=== PATIENT | male | born 1990 | race Caucasian/White ===

== ENCOUNTER 2021-06-04 03:31 | Emergency (ER) | payer MEDICARE ==
[2021-06-04 03:48] VITALS: BP 161/100
[2021-06-04] MEDS ORDERED: HEPARIN 10,000 UNITS/10 ML VIAL IV PRN (03:49)
[2021-06-04 04:42] LABS: Hematocrit 29.6 % (35.5-45.6); Mean Corpuscular HGB Conc 34 % (32-34); Mean Corpuscular Volume 96 fl (84-94); Platelet Count 401 K/mm3 (140-440); Red Blood Count 3.08 M/mm3 (3.65-5.03); Red Cell Distribution Width 19.8 % (13.2-15.2)
[2021-06-04 04:58] LABS: Alanine Aminotransferase 6 units/L (7-56); Albumin 4.6 g/dL (3.9-5); Blood Urea Nitrogen 11 mg/dL (9-20); Hemolysis Index 67
[2021-06-04 05:02] LABS: BUN/Creatinine Ratio 16
--- NOTE | 2021-06-04 05:12 | XRay Report ---
CHEST 2 VIEWS INDICATION / CLINICAL INFORMATION: Dysrhythmia. COMPARISON: None available. FINDINGS: SUPPORT DEVICES: None. HEART / MEDIASTINUM: No significant abnormality. LUNGS / PLEURA: No significant pulmonary abnormality. No significant pleural effusion. No pneumothora x. ADDITIONAL FINDINGS: No significant additional findings. IMPRESSION: 1. No acute abnormality of the chest. Signer Name: Ollie Woo MD Signed: 06/04/2021 5:07 AM Workstation Name: [id number]
[2021-06-04 05:26] LABS: Total Cells Counted 200
[2021-06-04 05:27] LABS: Eosinophils % (Manual) 2.5 % (0.0-4.3); Nucleated Red Blood Cells 2.5 % (0.0-0.9)
[2021-06-04 05:28] LABS: Anisocytosis 2+; Platelet Estimate Consistent w Auto; Sickle Cells 1+; Stomatocytes Few; Target Cells Few
--- NOTE | 2021-06-04 12:04 | Electrocardiograph Report ---
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
== END 2021-06-04 06:33 ==
LOC: ED 03:31
DX: R00.2 Palpitations (principal); Z53.21 Procedure and treatment not carried out due to patient leaving prior to being seen by health care provider
CPT/HCPCS: 36415; 71046; 80053; 85007; 85025; 93005

== ENCOUNTER 2021-12-17 13:38 | Emergency (ER) | payer MEDICARE ==
[2021-12-17 14:56] VITALS: BP 109/83
[2021-12-17 16:03] LABS: Hematocrit 52.6 % (35.5-45.6); Hemoglobin 17.1 gm/dl (11.8-15.2); Red Blood Count 6.12 M/mm3 (3.65-5.03)
[2021-12-17 16:04] LABS: Mean Corpuscular HGB Conc 33 % (32-34); Mean Corpuscular Volume 86 fl (84-94); Platelet Count 343 K/mm3 (140-440); Red Cell Distribution Width 14.7 % (13.2-15.2)
[2021-12-17 16:27] LABS: Calcium 12.1 mg/dL (8.4-10.2)
[2021-12-17 16:34] LABS: Albumin 7.3 g/dL (3.9-5); Eosinophils % (Manual) 0 % (0.0-4.3); Total Cells Counted 100
[2021-12-17 16:35] LABS: Basophils % (Manual) 0 % (0.0-1.8); Large Platelets Few; Platelet Estimate Consistent w Auto; RBC Morphology Normal
[2021-12-17 16:42] LABS: Bacteria,Urine 1+ /HPF (Negative); Granular Casts,Urine 2 /LPF; Hyaline Casts,Urine 32 /LPF; Mucus,Urine 3+ /HPF
[2021-12-17 16:53] LABS: Bilirubin,Urine Negative (Negative); Color,Urine Yellow (Yellow)
[2021-12-17 16:54] LABS: Blood,Urine Small (Negative); Protein,Urine >500 mg/dL (Negative); Urobilinogen,Urine < 2.0 mg/dL (<2.0)
[2021-12-18] MEDS ORDERED: ONDANSETRON 4 MG/2 ML INJ IV PRN (13:54)
[2021-12-18] MEDS ORDERED: oxyCODONE /ACETAMINOPHEN 5-325MG TAB PO PRN (13:54)
[2021-12-18] MEDS ORDERED: HYDROmorphone 0.5 MG/0.5 ML INJ IV PRN ×2 (13:54)
[2021-12-18] MEDS ORDERED: ACETAMINOPHEN 325 MG TAB PO PRN ×2 (13:54)
[2021-12-18] MEDS ORDERED: cefTRIAXone/NS 1 GM/50 ML 1 GM/50 ML BAG IV SCH (14:00)
== END 2021-12-18 02:15 | disposition left against medical advice (07) ==
LOC: ED 13:38
DX: R11.10 Vomiting, unspecified (principal); Z53.21 Procedure and treatment not carried out due to patient leaving prior to being seen by health care provider
CPT/HCPCS: 36415; 80053; 81001; 82140; 85007; 85025; 86850; 86900; 86901; 87086

== ENCOUNTER 2022-03-13 05:07 | Emergency (ER) | payer MEDICARE | END 2022-03-13 11:17 | disposition left against medical advice (07) | LOC: ED 05:07 | DX: D57.00 Hb-SS disease with crisis, unspecified (principal); Z53.21 Procedure and treatment not carried out due to patient leaving prior to being seen by health care provider ==